=== PATIENT | female | born 1945 | race African-American/Black ===

== ENCOUNTER 2020-01-25 08:47 | Inpatient (IN) | payer MEDICARE, MEDICAID ==
[~2020-01-25] VITALS: Ht 165.1 cm; Wt 95.7 kg
[~2020-01-25 08:47] MED LIST: CLONIDINE; TYLENOL 3
[2020-01-25] MEDS ORDERED: SODIUM CHLORIDE 0.9% 1000ML BAG (SEPSIS BOLUS) IV ONE (09:15)
[2020-01-25 09:45] LABS: BASOPHILS % 0.8 % (0.0-2.0); EOSINOPHILS % 1.6 % (0.0-5.0); HEMATOCRIT. 30.4 % (36.0-48.0); HEMOGLOBIN. 9.8 g/dL (12.0-16.0); LYMPHOCYTES % 11.6 % (20.0-50.0); MEAN CORPUSCULAR HEMOGLOBIN 30.6 pg (28.0-32.0); MEAN CORPUSCULAR VOLUME 94.4 fL (81.0-99.0); MEAN PLATELET VOLUME 9.3 fl (7.4-10.4); MONOCYTES % 9.6 % (2.0-8.0); NEUTROPHILS % 76.4 % (40.0-76.0); PLATELET 314 x1000/uL (130-400); RED BLOOD CELL COUNT 3.22 mill/uL (4.2-5.4); RED CELL DISTRIBUTION WIDTH 18.1 % (11.6-14.6)
[2020-01-25 09:51] LABS: CHLORIDE 109 mEq/L (98-107)
[2020-01-25 09:51] LABS: BG BASE EXCESS -2.5 mmol/L (-2.0-2.0); BG CARBOXYHEMOGLOBIN 0.3 % (0.5-1.5); BG FRACTION INSPIRED OXYGEN 21; BG HCO3 ACT 24.2 mmol/L (22.0-26.0); BG METHEMOGLOBIN 0.3 % (0.0-1.5); BG OXYGEN SATURATION 87.9 % (92.0-98.5); BG OXYHEMOGLOBIN 87.4 % (94.0-97.0); BG PCO2 50.8 mmHg (35.0-45.0); BG PH 7.296 (7.350-7.450); BG PO2 54.6 mmHg (75.0-100.0); BG SAMPLE SITE RIGHT BRACHIAL; BG TOTAL HEMOGLOBIN 10.7 g/dL (12.0-18.0); BG VENT MODE ROOM AIR
[2020-01-25 09:52] LABS: INR 0.9; PROTHROMBIN TIME 9.9 sec (9.6-11.0)
[2020-01-25 09:56] LABS: CLARITY URINE CLOUDY (CLEAR); COLOR URINE YELLOW (YELLOW); KETONES URINE TRACE (NEGATIVE); LEUKOCYTE ESTERASE URINE TRACE (NEGATIVE); NITRITE URINE NEGATIVE (NEGATIVE); OCCULT BLOOD URINE NEGATIVE (NEGATIVE); PROTEIN URINE TRACE (NEGATIVE); SPECIFIC GRAVITY URINE 1.019 (1.005-1.030); UROBILINOGEN URINE 0.2 E.U./dL (0.2-1.0)
[2020-01-25 09:56] LABS: ETHANOL BLOOD < 10 mg/dL
[2020-01-25 10:21] LABS: *AMPHETAMINES SCREEN URINE NEGATIVE (NEGATIVE); *BARBITURATES SCREEN URINE NEGATIVE (NEGATIVE); *BENZODIAZEPINES SCREEN URINE NEGATIVE (NEGATIVE); *COCAINE SCREEN URINE NEGATIVE (NEGATIVE); METHADONE URINE SCREEN NEGATIVE (NEGATIVE)
[2020-01-25 10:22] LABS: CANNABINOID URINE SCREEN NEGATIVE (NEGATIVE); OPIATES URINE SCREEN PRESUMTIVE POSITIVE (NEGATIVE); PHENCYCLIDINE URINE SCREEN NEGATIVE (NEGATIVE)
[2020-01-25] MEDS ORDERED: CEFTRIAXONE 2 G PREMIX 50 ML IV ONE (10:45)
[2020-01-25] MEDS ORDERED: CEFTRIAXONE 2 G in DEXTROSE 5% WATER 50 ML IV SCH (11:00)
[2020-01-25] MEDS ORDERED: ONDANSETRON HCL 4MG/2ML INJ IV PRN (12:15)
[2020-01-25] MEDS ORDERED: VANCOMYCIN 1500MG in DEXTROSE 5% WATER 250ML IV SCH (13:00)
[2020-01-25] MEDS: SODIUM CHLORIDE 0.9% 1,000 ML IV SCH (13:25)
[2020-01-25] MEDS: PIPERACILLIN/TAZOBACTAM 2.25 G in DEXTROSE 5% WATER 50 ML IV SCH ×2 (14:58→23:30)
[2020-01-25 15:11] LABS: FOLIC ACID (FOLATE) SERUM 7.4 ng/mL (>5.38)
[2020-01-25] MEDS ORDERED: IPRATROPIUM/ALBUTEROL 0.5-3(2.5)MG/3ML NEB HHN PRN (15:30)
[2020-01-25 15:36] LABS: TOTAL IRON BINDING CAPACITY 234 ug/dL (250-450)
[2020-01-25] MEDS: NOREPINEPHRINE 4 MG in DEXT 5% WATER 246 ML IV PRN (15:36)
[2020-01-25] MEDS: IPRATROPIUM/ALBUTEROL 0.5-3(2.5)MG/3ML NEB HHN SCH (18:00)
[2020-01-25] MEDS ORDERED: PIPERACILLIN/TAZOBACTAM 3.375 G in DEXTROSE 5% WATER 50 ML IV SCH (18:00)
[2020-01-25] MEDS: HEPARIN 5000 UNITS/ML VIAL SUBCUT SCH ×2 (19:23→22:00)
[2020-01-26] MEDS: IPRATROPIUM/ALBUTEROL 0.5-3(2.5)MG/3ML NEB HHN SCH
[2020-01-26] MEDS: SODIUM CHLORIDE 0.9% 1,000 ML IV SCH ×2 (00:36→13:06)
[2020-01-26] MEDS: PIPERACILLIN/TAZOBACTAM 2.25 G in DEXTROSE 5% WATER 50 ML IV SCH ×3 (08:00→21:18)
[2020-01-26 09:22] LABS: BG BASE EXCESS -7.6 mmol/L (-2.0-2.0); BG CARBOXYHEMOGLOBIN 0.3 % (0.5-1.5); BG DEOXYHEMOGLOBIN 2.9 % (0.0-5.0); BG FRACTION INSPIRED OXYGEN 28; BG HCO3 ACT 19.3 mmol/L (22.0-26.0); BG METHEMOGLOBIN 0.2 % (0.0-1.5); BG OXYGEN SATURATION 97.1 % (92.0-98.5); BG OXYHEMOGLOBIN 96.6 % (94.0-97.0); BG PCO2 44.9 mmHg (35.0-45.0); BG PH 7.252 (7.350-7.450); BG PO2 91.7 mmHg (75.0-100.0); BG SAMPLE SITE RIGHT RADIAL; BG TOTAL HEMOGLOBIN 10.9 g/dL (12.0-18.0); BG VENT MODE NASAL CANNULA
[2020-01-26] MEDS: HEPARIN 5000 UNITS/ML VIAL SUBCUT SCH ×2 (09:29→21:00)
[2020-01-26] MEDS: NOREPINEPHRINE 4 MG in DEXT 5% WATER 246 ML IV PRN (10:49)
[2020-01-26 12:43] LABS: CHLORIDE 108 mEq/L (98-107); CHLORIDE 110 mEq/L (98-107)
[2020-01-26 12:47] LABS: BASOPHILS % 0.5 % (0.0-2.0); EOSINOPHILS % 1.9 % (0.0-5.0); HEMOGLOBIN. 10.3 g/dL (12.0-16.0); LYMPHOCYTES % 9.4 % (20.0-50.0); MEAN CORPUSCULAR HEMOGLOBIN 30.2 pg (28.0-32.0); MEAN CORPUSCULAR VOLUME 93.6 fL (81.0-99.0); MONOCYTES % 8.5 % (2.0-8.0); NEUTROPHILS % 79.7 % (40.0-76.0); PLATELET 318 x1000/uL (130-400); RED BLOOD CELL COUNT 3.42 mill/uL (4.2-5.4); RED CELL DISTRIBUTION WIDTH 17.3 % (11.6-14.6)
[2020-01-26 12:52] LABS: T4 FREE 1.11 ng/dL (0.76-1.46)
[2020-01-26 13:05] LABS: CREATINE KINASE 1047 IU/L (26-192)
[2020-01-26] MEDS ORDERED: VANCOMYCIN 1 G PREMIX 200 ML IV NR (15:00)
[2020-01-27] VITALS (7 sets, daily range): BP systolic 142–153; BP diastolic 67–78
[2020-01-27] MEDS: SODIUM CHLORIDE 0.9% 1,000 ML IV SCH ×2 (01:36→13:16)
[2020-01-27] MEDS: PIPERACILLIN/TAZOBACTAM 2.25 G in DEXTROSE 5% WATER 50 ML IV SCH ×3 (05:25→21:19)
[2020-01-27 06:01] LABS: BASOPHILS % 0.5 % (0.0-2.0); EOSINOPHILS % 1.8 % (0.0-5.0); HEMATOCRIT. 29.6 % (36.0-48.0); LYMPHOCYTES % 8.3 % (20.0-50.0); MEAN CORPUSCULAR VOLUME 92.1 fL (81.0-99.0); MEAN PLATELET VOLUME 8.4 fl (7.4-10.4); MONOCYTES % 7.2 % (2.0-8.0); NEUTROPHILS % 82.2 % (40.0-76.0); PLATELET 243 x1000/uL (130-400); RED BLOOD CELL COUNT 3.21 mill/uL (4.2-5.4); RED CELL DISTRIBUTION WIDTH 17.2 % (11.6-14.6)
[2020-01-27 06:10] LABS: CHLORIDE 113 mEq/L (98-107)
[2020-01-27] MEDS: HEPARIN 5000 UNITS/ML VIAL SUBCUT SCH ×2 (09:58→21:24)
[2020-01-27] MEDS: AMLODIPINE 5MG TABLET PO SCH (10:54)
[2020-01-27] MEDS ORDERED: VANCOMYCIN 750 MG PREMIX 150 ML IV NR (11:00)
[2020-01-27] MEDS: KETOROLAC 30MG/ML VIAL IV PRN ×2 (13:16→23:33)
[2020-01-27] MEDS: ACETAMINOPHEN 325MG TABLET PO PRN (16:58)
[2020-01-28] VITALS (12 sets, daily range): BP systolic 153–175; BP diastolic 78–96
[2020-01-28] MEDS: SODIUM CHLORIDE 0.9% 1,000 ML IV SCH ×2 (02:21→21:36)
[2020-01-28] MEDS: PIPERACILLIN/TAZOBACTAM 3.375 G in DEXT 5% WATER 100 ML IV SCH ×3 (05:29→21:37)
[2020-01-28 05:44] LABS: CHLORIDE 113 mEq/L (98-107)
[2020-01-28 06:22] LABS: BASOPHILS % 0.7 % (0.0-2.0); EOSINOPHILS % 0.9 % (0.0-5.0); HEMATOCRIT. 29.5 % (36.0-48.0); HEMOGLOBIN. 9.8 g/dL (12.0-16.0); LYMPHOCYTES % 10.6 % (20.0-50.0); MEAN CORPUSCULAR HEMOGLOBIN 30.5 pg (28.0-32.0); MEAN CORPUSCULAR VOLUME 92.2 fL (81.0-99.0); MEAN PLATELET VOLUME 9.4 fl (7.4-10.4); MONOCYTES % 6.8 % (2.0-8.0); PLATELET 236 x1000/uL (130-400); RED BLOOD CELL COUNT 3.19 mill/uL (4.2-5.4); RED CELL DISTRIBUTION WIDTH 16.6 % (11.6-14.6)
[2020-01-28] MEDS: KETOROLAC 30MG/ML VIAL IV PRN (06:47)
[2020-01-28] MEDS: CYANOCOBALAMIN 1000MCG/ML VIAL IM SCH (08:03)
[2020-01-28] MEDS: AMLODIPINE 5MG TABLET PO SCH ×2 (08:03→21:59)
[2020-01-28] MEDS: HEPARIN 5000 UNITS/ML VIAL SUBCUT SCH ×2 (08:07→21:37)
[2020-01-28] MEDS: ACETAMINOPHEN 325MG TABLET PO PRN (08:56)
[2020-01-28] MEDS: TRAMADOL 50MG TABLET PO PRN ×2 (10:38→17:20)
[2020-01-28] MEDS: VANCOMYCIN 750 MG PREMIX 150 ML IV SCH (12:47)
[2020-01-28] MEDS: GABAPENTIN 100MG CAPSULE PO SCH ×2 (14:00→17:19)
[2020-01-28] MEDS: HALOPERIDOL LACTATE 5MG/ML VIAL IM PRN (14:13)
[2020-01-28] MEDS: RISPERIDONE 1MG TABLET PO SCH (21:59)
[2020-01-29] VITALS (16 sets, daily range): BP systolic 145–175; BP diastolic 74–126
[2020-01-29] MEDS ORDERED: CLONIDINE HCL 0.2MG/24HR PATCH TD SCH
[2020-01-29] MEDS ORDERED: HYDRALAZINE 20MG/ML VIAL IV PRN
[2020-01-29] MEDS: GABAPENTIN 100MG CAPSULE PO SCH ×3 (05:00→21:30)
[2020-01-29] MEDS: VANCOMYCIN 750 MG PREMIX 150 ML IV SCH ×2 (05:01→23:57)
[2020-01-29] MEDS: PIPERACILLIN/TAZOBACTAM 3.375 G in DEXT 5% WATER 100 ML IV SCH ×3 (05:51→21:26)
[2020-01-29 07:03] LABS: HEMATOCRIT. 29.2 % (36.0-48.0); HEMOGLOBIN. 9.8 g/dL (12.0-16.0); MEAN CORPUSCULAR HEMOGLOBIN 30.4 pg (28.0-32.0); MEAN CORPUSCULAR VOLUME 90.6 fL (81.0-99.0); MEAN PLATELET VOLUME 8.9 fl (7.4-10.4); PLATELET 249 x1000/uL (130-400); RED BLOOD CELL COUNT 3.23 mill/uL (4.2-5.4); RED CELL DISTRIBUTION WIDTH 16.8 % (11.6-14.6)
[2020-01-29 07:14] LABS: CHLORIDE 109 mEq/L (98-107)
[2020-01-29 07:32] LABS: PHOSPHORUS 1.9 mg/dL (2.5-4.9)
[2020-01-29 08:34] LABS: PLATELET ESTIMATE NORMAL
[2020-01-29] MEDS: RISPERIDONE 1MG TABLET PO SCH ×2 (08:50→21:17)
[2020-01-29] MEDS: AMLODIPINE 5MG TABLET PO SCH ×2 (08:51→21:17)
[2020-01-29] MEDS: HEPARIN 5000 UNITS/ML VIAL SUBCUT SCH ×2 (08:52→21:18)
[2020-01-29] MEDS: CYANOCOBALAMIN 1000MCG/ML VIAL IM SCH (08:52)
[2020-01-29] MEDS: ACETAMINOPHEN 325MG TABLET PO PRN (11:27)
[2020-01-29] MEDS: SODIUM CHLORIDE 0.9% 1,000 ML IV SCH (12:39)
[2020-01-29] MEDS ORDERED: DILTIAZEM HCL 5MG/ML 5ML VIAL IV NR (13:45)
[2020-01-29] MEDS ORDERED: POTASSIUM PHOS,M-BASIC-D-BASIC 20 MMOL in DEXT 5% WATER 243.3333 ML IV NR (16:00)
[2020-01-29] MEDS ORDERED: DILTIAZEM HCL 5MG/ML 5ML VIAL IV PRN (18:00)
[2020-01-30] VITALS (13 sets, daily range): BP systolic 114–154; BP diastolic 65–98
[2020-01-30] MEDS: TRAMADOL 50MG TABLET PO PRN (01:30)
[2020-01-30] MEDS: PIPERACILLIN/TAZOBACTAM 3.375 G in DEXT 5% WATER 100 ML IV SCH ×3 (05:42→21:55)
[2020-01-30] MEDS: GABAPENTIN 100MG CAPSULE PO SCH ×3 (05:42→21:55)
[2020-01-30 07:11] LABS: BASOPHILS % 0.5 % (0.0-2.0); EOSINOPHILS % 2.6 % (0.0-5.0); HEMATOCRIT. 28.8 % (36.0-48.0); HEMOGLOBIN. 9.8 g/dL (12.0-16.0); LYMPHOCYTES % 12.7 % (20.0-50.0); MEAN CORPUSCULAR HEMOGLOBIN 30.9 pg (28.0-32.0); MEAN CORPUSCULAR VOLUME 91.1 fL (81.0-99.0); MEAN PLATELET VOLUME 8.9 fl (7.4-10.4); MONOCYTES % 10.6 % (2.0-8.0); NEUTROPHILS % 73.6 % (40.0-76.0); PLATELET 228 x1000/uL (130-400); RED BLOOD CELL COUNT 3.16 mill/uL (4.2-5.4); RED CELL DISTRIBUTION WIDTH 16.9 % (11.6-14.6)
[2020-01-30 07:23] LABS: CHLORIDE 109 mEq/L (98-107)
[2020-01-30] MEDS: RISPERIDONE 1MG TABLET PO SCH ×2 (08:33→21:54)
[2020-01-30] MEDS: CYANOCOBALAMIN 1000MCG/ML VIAL IM SCH (08:33)
[2020-01-30] MEDS: AMLODIPINE 5MG TABLET PO SCH ×2 (08:33→21:54)
[2020-01-30] MEDS: HEPARIN 5000 UNITS/ML VIAL SUBCUT SCH ×2 (08:33→21:55)
[2020-01-30 10:21] LABS: PHOSPHORUS 2.4 mg/dL (2.5-4.9)
[2020-01-30] MEDS ORDERED: POTASSIUM CHLORIDE INJ 40 MEQ in DEXT 5% WATER 250 ML IV SCH (11:00)
[2020-01-30] MEDS: SODIUM CHLORIDE 0.9% 1,000 ML IV SCH (11:13)
[2020-01-30] MEDS: HALOPERIDOL LACTATE 5MG/ML VIAL IM PRN (17:35)
[2020-01-31] VITALS (14 sets, daily range): BP systolic 110–150; BP diastolic 54–83
[2020-01-31] MEDS: HALOPERIDOL LACTATE 5MG/ML VIAL IM PRN (03:03)
[2020-01-31] MEDS: SODIUM CHLORIDE 0.9% 1,000 ML IV SCH (04:57)
[2020-01-31] MEDS: PIPERACILLIN/TAZOBACTAM 3.375 G in DEXT 5% WATER 100 ML IV SCH ×2 (06:12→13:39)
[2020-01-31] MEDS: GABAPENTIN 100MG CAPSULE PO SCH ×2 (06:12→13:39)
[2020-01-31 06:57] LABS: BASOPHILS % 0.8 % (0.0-2.0); EOSINOPHILS % 4.9 % (0.0-5.0); HEMATOCRIT. 27.5 % (36.0-48.0); HEMOGLOBIN. 9.3 g/dL (12.0-16.0); LYMPHOCYTES % 17.1 % (20.0-50.0); MEAN CORPUSCULAR HEMOGLOBIN 30.8 pg (28.0-32.0); MEAN PLATELET VOLUME 8.9 fl (7.4-10.4); MONOCYTES % 10.4 % (2.0-8.0); NEUTROPHILS % 66.8 % (40.0-76.0); PLATELET 218 x1000/uL (130-400); RED BLOOD CELL COUNT 3.02 mill/uL (4.2-5.4); RED CELL DISTRIBUTION WIDTH 17.2 % (11.6-14.6)
[2020-01-31 07:59] LABS: CHLORIDE 107 mEq/L (98-107)
[2020-01-31] MEDS ORDERED: KCL 20MEQ/100ML PREMIX 100 ML IV NR (09:00)
[2020-01-31] MEDS ORDERED: MEMANTINE HCL 5MG TABLET PO SCH (09:00)
[2020-01-31] MEDS: AMLODIPINE 5MG TABLET PO SCH (09:12)
[2020-01-31] MEDS: RISPERIDONE 1MG TABLET PO SCH (09:12)
[2020-01-31] MEDS: ACETAMINOPHEN 325MG TABLET PO PRN (09:13)
[2020-01-31] MEDS: HEPARIN 5000 UNITS/ML VIAL SUBCUT SCH (09:13)
[2020-01-31] MEDS ORDERED: TOPUD PO (13:01)
[2020-01-31] MEDS ORDERED: TRAM50TA3 PO (13:01)
[2020-01-31] MEDS ORDERED: AMLO5TAB88 PO (13:01)
[2020-01-31] MEDS ORDERED: GABA-529 PO (13:01)
[2020-01-31] MEDS ORDERED: MEMA5TAB7 PO (13:01)
[2020-01-31] MEDS ORDERED: RISP1 PO (13:01)
[2020-01-31] MEDS ORDERED: DOXY100C42 MT (13:01)
[2020-01-31] MEDS ORDERED: AMOX-424 MT (13:05)
[2020-02-04] MEDS ORDERED: CLONIDINE HCL 0.2MG/24HR PATCH TD SCH
== END 2020-01-31 20:26 | disposition home or self-care (01) | DRG 871 ==
LOC: ER 08:47 → MICUSO 10:42 → EDBEDREQ 10:46 → EDBEDREQTM 10:46 → MICUSO 01-26 07:51 → 5EST 01-27 12:00
PROVIDERS: ADMIT Family Medicine Adult Medicine; ATTEND Family Medicine Adult Medicine
PROC: 05HY33Z Insertion of Infusion Device into Upper Vein, Percutaneous Approach (ICD-10-PCS; principal; 2020-01-25)
DX: A41.9 Sepsis, unspecified organism (principal); G92 Toxic encephalopathy; J18.9 Pneumonia, unspecified organism; J96.02 Acute respiratory failure with hypercapnia; J96.01 Acute respiratory failure with hypoxia; R65.21 Severe sepsis with septic shock; N39.0 Urinary tract infection, site not specified; A04.72 Enterocolitis due to Clostridium difficile, not specified as recurrent; T40.601A Poisoning by unspecified narcotics, accidental (unintentional), initial encounter; E87.5 Hyperkalemia; D64.9 Anemia, unspecified; F03.90 Unspecified dementia, unspecified severity, without behavioral disturbance, psychotic disturbance, mood disturbance, and anxiety; I10 Essential (primary) hypertension; E53.8 Deficiency of other specified B group vitamins; L89.156 Pressure-induced deep tissue damage of sacral region; Z20.828 Contact with and (suspected) exposure to other viral communicable diseases; E87.6 Hypokalemia; S92.902A Unspecified fracture of left foot, initial encounter for closed fracture; X58.XXXA Exposure to other specified factors, initial encounter; S92.312A Displaced fracture of first metatarsal bone, left foot, initial encounter for closed fracture; N18.9 Chronic kidney disease, unspecified; I27.21 Secondary pulmonary arterial hypertension; Y92.89 Other specified places as the place of occurrence of the external cause; Z78.9 Other specified health status; Z87.440 Personal history of urinary (tract) infections; Y93.89 Activity, other specified; Y99.8 Other external cause status; Z79.899 Other long term (current) drug therapy
CPT/HCPCS: 36415; 36600; 71045; 73120; 73630; 80048; 80053; 80202; 80305; 80320; 81003; 82140; 82270; 82375; 82550; 82607; 82728; 82746; 82805; 82962; 83540; 83550; 83605; 83735; 83880; 84100; 84145; 84439; 84443; 84484; 85025; 85044; 86850; 86900; 87493; 92610; 93005; 93306; 95816; 96365; 97162; 97166; 97530; 99285; J0360; J0696; J1630; J1644; J1885; J2405; J2543; J3370; J3420; J3480; J3490; J7030; J7060; G0480; U0003-CS